=== PATIENT | female | born 1970 | race Caucasian/White ===

== ENCOUNTER 2020-01-11 11:02 | Emergency (ER) | payer OTHER ==
[~2020-01-11] VITALS: Ht 167.6 cm; Wt 122.7 kg
[2020-01-11 11:12] VITALS: Ht 167.6 cm; Wt 122.7 kg
[2020-01-11] MEDS ORDERED: DEPAKOTE500 MG PO (11:13)
[2020-01-11] MEDS ORDERED: KEPPRA500 MG PO (11:13)
[2020-01-11] MEDS ORDERED: GLUCOTROL 5 MG T5 MG PO (11:13)
[2020-01-11] MEDS ORDERED: ASPIRIN81 MG PO (11:14)
[2020-01-11] MEDS ORDERED: CITRACAL + D E1 EACH PO (11:14)
[2020-01-11] MEDS ORDERED: VITAMIN D1000 UNIT PO (11:14)
[2020-01-11] MEDS ORDERED: TOZAL SOFTGEL1 EACH PO (11:14)
[2020-01-11] MEDS ORDERED: CRESTOR20 MG PO (11:14)
[2020-01-11] MEDS ORDERED: GLIPIZIDE10 MG PO (11:15)
[2020-01-11 11:46] LABS: BASOPHILS 0.2 % (0-2); HEMATOCRIT 44.3 % (36.0-48.0); HEMOGLOBIN 14.7 g/dL (12-16); IMMATURE GRANULOCYTES 0.2 % (0-5); LYMPHOCYTES 31.1 % (15-50); MCH 29.8 pg (26.0-34.0); MCHC 33.2 g/dL (31.0-37.0); MCV 89.9 fL (80.0-100.0); MEAN PLATELET VOLUME 10.2 fL (7.4-10.4); MONOCYTES 6.5 % (2-11); PLATELET COUNT 235 10x3/uL (130-400); RBC 4.93 10x6/uL (4.00-5.40); RDW 12.4 % (11.5-14.5)
[2020-01-11 11:54] LABS: ANION GAP 11.8 mmol/L (8-16); CALCIUM 8.7 mg/dL (8.5-10.1); CARBON DIOXIDE 28.2 mmol/L (21.0-32.0); CREATININE - SERUM 1.3 mg/dL (0.6-1.3)
[2020-01-11 11:56] LABS: BACTERIA MODERATE /hpf (NEGATIVE); BILIRUBIN NEGATIVE (NEGATIVE); EPITHELIAL CELLS OCC /hpf (0-5); GLUCOSE 1000 mg/dL (NEGATIVE); KETONE MODERATE mg/dL (NEGATIVE); NITRITE NEGATIVE (NEGATIVE); RED CELLS - URINE 0-5 /hpf (0-5); UROBILINOGEN NORMAL (NORMAL); WHITE CELLS - URINE NSEEN /hpf (NEGATIVE)
[2020-01-11 12:03] LABS: ALBUMIN 3.4 g/dL (3.4-5.0); BILIRUBIN - TOTAL 0.35 mg/dL (0.2-1.3); MAGNESIUM - SERUM 1.8 mg/dL (1.8-2.4); PROTEIN - SERUM 7.7 g/dL (6.4-8.2)
[2020-01-11] MEDS ORDERED: STARLIX60 MG PO (14:06)
[2020-01-11 14:35] VITALS: BP 168/87
== END 2020-01-11 14:38 | disposition home or self-care (01) ==
LOC: D.ER 11:02
PROVIDERS: Emergency Medicine
DX: E11.65 Type 2 diabetes mellitus with hyperglycemia (principal); Z79.84 Long term (current) use of oral hypoglycemic drugs